=== PATIENT | female | born 1965 | race Caucasian/White ===

== ENCOUNTER 2019-10-06 12:40 | Emergency (ER) | payer OTHER ==
[~2019-10-06] VITALS: Ht 160 cm; Wt 102.8 kg
[~2019-10-06 12:40] MED LIST: ASPI-676 PO; D-ME473S2 PO; FURO20TA3 PO; INSU100I12 SQ; INSU100I33 SC; LISI10TA2 PO; NOVO3I SC; OMEP40CA38 PO; SIMV40TA7 PO
[2019-10-06 13:02] VITALS: Ht 160 cm; Wt 102.8 kg
[2019-10-06 15:46] VITALS: BP 156/63; PULSE 89; RESP 18
== END 2019-10-06 16:00 | disposition home or self-care (01) ==
LOC: FTE 12:40 → E/R 16:00
DX: R06.02 Shortness of breath (principal); E11.65 Type 2 diabetes mellitus with hyperglycemia; E11.22 Type 2 diabetes mellitus with diabetic chronic kidney disease; N18.6 End stage renal disease; I50.9 Heart failure, unspecified; Z79.4 Long term (current) use of insulin; Z99.2 Dependence on renal dialysis; Z79.82 Long term (current) use of aspirin
CPT/HCPCS: 36415; 71045; 80048; 83880; 84484; 85025; Z7502; 93005